=== PATIENT | female | born 1960 | race African-American/Black ===

== ENCOUNTER 2016-05-16 12:23 | Observation (INO) | payer BC, OTHER ==
[~2016-05-16] VITALS: Ht 167.6 cm; Wt 76.8 kg
[~2016-05-16 12:23] MED LIST: ALBUTEROL17 GM IH; AMLODIPINE BESY10 MG PO; AMLODIPINE BESYL5 MG PO; CELECOXIB200 MG PO; CHLORTHALIDONE25 MG PO; DOXEPIN HCL50 MG PO; DOXYCYCLINE HY100 MG PO; ERGOCALCIF50000 UNIT PO; FETZIMA40 MG PO; FLEXERIL10 MG PO; GABAPENTIN100 MG PO; HYCODAN SYRUP480 ML PO; HYDROCHLOROTHIA25 MG PO; MELOXICAM15 MG PO; METOPROLOL SUC100 MG PO; MOTRIN800 MG PO; NAPROSYN500 MG PO; NORCO 5/3251 TABLET PO; NORTRIPTYLINE H25 MG PO; PANTOPRAZOLE SO40 MG PO; PERCOCET 5/31 TABLET PO; PREDNISONE20 MG PO; PRILOSEC20 MG PO; PROVENTIL,2.5 MG/3 M IH; PULMICORT1 MG/2 ML IH; TOPROL XL100 MG PO; ZITHROMAX Z-PA250 MG PO
[2016-05-16 13:53] LABS: HEMATOCRIT 37.3 % (36.0-46.0); MCH 22.6 PG (29.0-34.0); MCHC 33.5 G/DL (30.0-36.0); MCV 67.6 FL (83-99); MEAN PLAT.VOLUME 10.5 uM^3 (9.5-12.4); PLATELET COUNT 435 K/uL (156-360); RBC DIS.WIDTH-CV 14.6 % (11.8-14.6); RED BLOOD COUNT 5.52 M/uL (3.80-5.20); WHITE BLOOD COUNT 7.5 K/uL (4.1-10.2)
[2016-05-16 13:55] LABS: EOSINOPHIL (%) 1.2 % (0-5); EOSINOPHIL COUNT 0.1 K/uL (0-0.3); IMMATURE GRANULOCYTE (%) 0.1 % (0.0-0.7); IMMATURE GRANULOCYTE COUNT 0.1 K/uL; LYMPHOCYTE COUNT 1.6 K/uL (1.0-2.8); MONOCYTE (%) 10.5 % (3-12); MONOCYTE COUNT 0.8 K/uL (0-0.8); NEUTROPHIL (%) 66.4 % (45-76)
[2016-05-16 14:06] LABS: CHLORIDE 107 mEq/L (99-109); POTASSIUM 5.1 mEq/L (3.7-5.4); SODIUM 139 mEq/L (136-147)
[2016-05-16 14:08] LABS: GLUCOSE 123 mg/dL (70-99)
[2016-05-16 14:09] LABS: ANION GAP 12 MEQ/L (2-14)
[2016-05-16 14:12] LABS: GFR ESTIMATE (CALCULATED) > 59 mL/min/; UREA NITROGEN (BUN) 13 mg/dL (9-23)
[2016-05-16 14:18] LABS: TROP-I INTERPRETATION NEGATIVE; TROPONIN-I < 0.01 ng/mL (0.0-0.30)
[2016-05-16] MEDS ORDERED: ROBITUSSIN LON118 ML PO (17:06)
[2016-05-16 18:06] VITALS: BP 196/96
[2016-05-16 18:32] LABS: HDL CHOLESTEROL 76 MG/DL (Desirable>=50); LDL CHOLESTEROL 76 mg/dL (Desirable<100); NON-HDL CHOLESTEROL 90 mg/dL (Desirable<160); TOTAL CHOLESTEROL 166 mg/dL (Desirable<200); TRIGLYCERIDES 70 MG/DL (Normal: <150)
[2016-05-16 20:00] VITALS: BP 158/84
[2016-05-16 20:09] LABS: TROP-I INTERPRETATION NEGATIVE; TROPONIN-I < 0.01 ng/mL (0.0-0.30)
[2016-05-17 00:22] VITALS: BP 125/74
[2016-05-17 01:36] LABS: TROP-I INTERPRETATION NEGATIVE; TROPONIN-I < 0.01 ng/mL (0.0-0.30)
[2016-05-17 04:21] VITALS: BP 156/79
[2016-05-17 07:27] VITALS: BP 138/74
[2016-05-17 09:19] LABS: HEMATOCRIT 35.2 % (36.0-46.0); MCH 21.9 PG (29.0-34.0); MCHC 31.3 G/DL (30.0-36.0); MEAN PLAT.VOLUME 10.4 uM^3 (9.5-12.4); PLATELET COUNT 444 K/uL (156-360); RBC DIS.WIDTH-SD 37.5 % (39-53); RED BLOOD COUNT 5.03 M/uL (3.80-5.20); WHITE BLOOD COUNT 6.9 K/uL (4.1-10.2)
[2016-05-17 09:41] LABS: ALKALINE PHOSPHATASE 69 IU/L (3-129); ANION GAP 6 MEQ/L (2-14); CHLORIDE 105 MEQ/L (99-109); GFR ESTIMATE (CALCULATED) > 59 mL/min/; GLUCOSE 100 mg/dL (70-99); POTASSIUM 4.1 MEQ/L (3.7-5.4); SAMPLE HEMOLYSIS CHECK 0; SAMPLE ICTERIC CHECK 0; SAMPLE LIPEMIA CHECK 0; SODIUM 139 MEQ/L (136-147); TOTAL BILIRUBIN 0.5 MG/DL (0.0-1.0); UREA NITROGEN (BUN) 9 mg/dL (9-23)
[2016-05-17 10:15] LABS: TROP-I INTERPRETATION NEGATIVE; TROPONIN-I < 0.01 ng/mL (0.0-0.30)
[2016-05-17 10:46] VITALS: BP 132/70
[2016-05-17] MEDS ORDERED: LEVAQUIN750 MG PO (11:54)
[2016-05-17] MEDS ORDERED: VENTOLIN HFA18 GM IH (11:55)
[2016-05-17] MEDS ORDERED: LISINOPRIL20 MG PO (12:20)
== END 2016-05-17 15:15 | disposition home or self-care (01) ==
LOC: EME 12:23 → 5WEST 16:49 → EDOF 16:49 → 5WEST 17:53
PROVIDERS: Emergency Medicine; Internal Medicine; Internal Medicine Cardiovascular Disease
DX: J18.9 Pneumonia, unspecified organism (principal); R07.9 Chest pain, unspecified; E04.1 Nontoxic single thyroid nodule; K83.8 Other specified diseases of biliary tract; I16.0 Hypertensive urgency; R59.1 Generalized enlarged lymph nodes; I10 Essential (primary) hypertension; F17.200 Nicotine dependence, unspecified, uncomplicated; D57.3 Sickle-cell trait; M79.602 Pain in left arm; Z80.51 Family history of malignant neoplasm of kidney; Z83.3 Family history of diabetes mellitus
CPT/HCPCS: 71010; 71275; 80048; 80053; 80061; 84484; 85025; 85027; 93005; 93306; 99202; 99281; 99285; G0378; J0696; J3010; J7050

== ENCOUNTER 2016-08-08 10:43 | Emergency (ER) | payer OTHER ==
[~2016-08-08] VITALS: Ht 167.6 cm; Wt 69.4 kg
[~2016-08-08 10:43] MED LIST changes: +LEVAQUIN750 MG PO; +LISINOPRIL20 MG PO; +ROBITUSSIN LON118 ML PO; +VENTOLIN HFA18 GM IH
[2016-08-08] MEDS ORDERED: MOTRIN800 MG PO (13:37)
[2016-08-08 14:05] VITALS: BP 177/98
== END 2016-08-08 14:11 | disposition home or self-care (01) ==
LOC: EME 10:43
DX: L72.3 Sebaceous cyst (principal)
CPT/HCPCS: 70450; 99281; 99283

== ENCOUNTER 2017-03-25 11:28 | Emergency (ER) | payer BC, OTHER ==
[~2017-03-25] VITALS: Ht 167.6 cm; Wt 90.5 kg
[2017-03-25] MEDS ORDERED: CITALOPRAM HBR20 MG PO (13:19)
[2017-03-25 14:11] LABS: HEMATOCRIT 34.6 % (36.0-46.0); HEMOGLOBIN 11.2 G/DL (11.9-15.5); MCH 23.3 PG (29.0-34.0); MCHC 32.4 G/DL (30.0-36.0); MCV 72.1 FL (83-99); PLATELET COUNT 358 K/uL (156-360); RBC DIS.WIDTH-CV 12.8 % (11.8-14.6); RBC DIS.WIDTH-SD 32.2 % (39-53); WHITE BLOOD COUNT 7.4 K/uL (4.1-10.2)
[2017-03-25 14:16] LABS: CHLORIDE 107 mEq/L (99-109); POTASSIUM 3.9 mEq/L (3.7-5.4); SODIUM 140 mEq/L (136-147)
[2017-03-25 14:18] LABS: GLUCOSE 81 mg/dL (70-99)
[2017-03-25 14:21] LABS: CREATININE 0.8 mg/dL (0.6-1.3); GFR ESTIMATE (CALCULATED) > 59 mL/min/
[2017-03-25 14:22] LABS: UREA NITROGEN (BUN) 12 mg/dL (9-23)
[2017-03-25] MEDS ORDERED: CHERATUSSIN AC473 ML PO (15:34)
[2017-03-25] MEDS ORDERED: PREDNISONE20 MG PO (15:34)
[2017-03-25] MEDS ORDERED: VENTOLIN HFA18 GM IH (15:52)
[2017-03-25 16:17] VITALS: BP 187/88
== END 2017-03-25 15:49 | disposition home or self-care (01) ==
LOC: EME 11:28
PROVIDERS: Nurse Practitioner Family
DX: J40 Bronchitis, not specified as acute or chronic (principal); I10 Essential (primary) hypertension; J02.9 Acute pharyngitis, unspecified; R60.0 Localized edema; D64.9 Anemia, unspecified; Z72.0 Tobacco use
CPT/HCPCS: 71020; 80048; 85027; 87502; 94640 76; 99281; 99284

== ENCOUNTER 2017-03-29 14:06 | Emergency (ER) | payer BC, OTHER ==
[~2017-03-29] VITALS: Ht 167.6 cm; Wt 93.5 kg
[~2017-03-29 14:06] MED LIST changes: +CHERATUSSIN AC473 ML PO; +CITALOPRAM HBR20 MG PO
[2017-03-29] MEDS ORDERED: VENTOLIN HFA18 GM IH (17:33)
[2017-03-29] MEDS ORDERED: TESSALON PERLE100 MG PO (17:33)
[2017-03-29] MEDS ORDERED: ROBITUSSIN AC,T10 ML PO (17:47)
[2017-03-29 18:05] VITALS: BP 199/82
== END 2017-03-29 18:05 | disposition home or self-care (01) ==
LOC: EME 14:06
DX: J45.909 Unspecified asthma, uncomplicated (principal); I10 Essential (primary) hypertension; E03.9 Hypothyroidism, unspecified; F17.200 Nicotine dependence, unspecified, uncomplicated
CPT/HCPCS: 94640; 99281; 99284

== ENCOUNTER 2017-07-19 21:29 | Observation (INO) | payer OTHER ==
[~2017-07-19] VITALS: Ht 167.6 cm; Wt 94.6 kg
[~2017-07-19 21:29] MED LIST changes: +ROBITUSSIN AC,T10 ML PO; +TESSALON PERLE100 MG PO
[2017-07-19 22:12] LABS: HEMATOCRIT 35.1 % (36.0-46.0); HEMOGLOBIN 11.5 G/DL (11.9-15.5); MCH 22.9 PG (29.0-34.0); MCHC 32.8 G/DL (30.0-36.0); MCV 69.9 FL (83-99); PLATELET COUNT 311 K/uL (156-360); RBC DIS.WIDTH-CV 14.4 % (11.8-14.6); RED BLOOD COUNT 5.02 M/uL (3.80-5.20); WHITE BLOOD COUNT 7.9 K/uL (4.1-10.2)
[2017-07-19 22:13] LABS: CHLORIDE 105 mEq/L (99-109); POTASSIUM 3.6 mEq/L (3.7-5.4); SODIUM 139 mEq/L (136-147)
[2017-07-19 22:15] LABS: GLUCOSE 107 mg/dL (70-99)
[2017-07-19 22:19] LABS: CREATININE 0.8 mg/dL (0.6-1.3); GFR ESTIMATE (CALCULATED) > 59 mL/min/
[2017-07-19 22:20] LABS: UREA NITROGEN (BUN) 15 mg/dL (9-23)
[2017-07-19 22:24] LABS: TROP-I INTERPRETATION NEGATIVE; TROPONIN-I < 0.01 ng/mL (0.0-0.30)
[2017-07-19] MEDS ORDERED: SINGULAIR10 MG PO (23:22)
[2017-07-19] MEDS ORDERED: BREO ELLIPTA 21 EACH IH (23:22)
[2017-07-20 00:52] VITALS: BP 130/60
[2017-07-20 02:40] LABS: HDL CHOLESTEROL 72 MG/DL (Desirable>=50); LDL CHOLESTEROL 71 mg/dL (Desirable<100); NON-HDL CHOLESTEROL 91 mg/dL (Desirable<160); TOTAL CHOLESTEROL 163 mg/dL (Desirable<200); TRIGLYCERIDES 98 MG/DL (Normal: <150)
[2017-07-20 05:09] VITALS: BP 130/68
[2017-07-20 05:33] LABS: HEMATOCRIT 38.1 % (36.0-46.0); HEMOGLOBIN 12.1 G/DL (11.9-15.5); MCH 22.3 PG (29.0-34.0); MCHC 31.8 G/DL (30.0-36.0); MCV 70.2 FL (83-99); RBC DIS.WIDTH-CV 14.5 % (11.8-14.6); RBC DIS.WIDTH-SD 35.4 % (39-53); RED BLOOD COUNT 5.43 M/uL (3.80-5.20); WHITE BLOOD COUNT 5.6 K/uL (4.1-10.2)
[2017-07-20 05:34] LABS: TROP-I INTERPRETATION NEGATIVE; TROPONIN-I 0.01 ng/mL (0.0-0.30)
[2017-07-20 05:50] LABS: CHLORIDE 108 MEQ/L (99-109); CREATININE 0.8 MG/DL (0.6-1.3); GFR ESTIMATE (CALCULATED) > 59 mL/min/; GLUCOSE 151 mg/dL (70-99); POTASSIUM 4.1 MEQ/L (3.7-5.4); SODIUM 140 MEQ/L (136-147); UREA NITROGEN (BUN) 14 mg/dL (9-23)
[2017-07-20 07:21] LABS: PLAT.SUFFICIENCY ADEQUATE; PLATELET CLUMPS PRESENT - PLATELET COUNT APPEARS ADQ.; PLATELET COUNT UNABLE TO REPORT K/uL (156-360)
[2017-07-20 10:27] LABS: TROP-I INTERPRETATION NEGATIVE; TROPONIN-I < 0.01 ng/mL (0.0-0.30)
[2017-07-20 11:26] VITALS: BP 137/74
[2017-07-20] MEDS ORDERED: ZITHROMAX500 MG PO (14:59)
[2017-07-20] MEDS ORDERED: CHERATUSSIN AC473 ML PO (15:00)
[2017-07-20] MEDS ORDERED: PREDNISONE10 MG PO (15:00)
== END 2017-07-20 15:29 | disposition home or self-care (01) ==
LOC: EME 21:29 → EDOF 23:41 → ENRESERV 23:50 → 4SOUTH 07-20 00:33
PROVIDERS: Nurse Practitioner Adult Health
DX: J44.1 Chronic obstructive pulmonary disease with (acute) exacerbation (principal); R07.9 Chest pain, unspecified; F17.200 Nicotine dependence, unspecified, uncomplicated; I10 Essential (primary) hypertension; E78.5 Hyperlipidemia, unspecified; K21.9 Gastro-esophageal reflux disease without esophagitis; F41.9 Anxiety disorder, unspecified; Z90.49 Acquired absence of other specified parts of digestive tract; Z82.49 Family history of ischemic heart disease and other diseases of the circulatory system; Z83.49 Family history of other endocrine, nutritional and metabolic diseases
CPT/HCPCS: 71046; 80048; 80061; 83880; 84484; 85027; 93005; 94640; 99281; 99285; G0378; J2930